=== PATIENT | female | born 1930 | race Caucasian/White ===

== ENCOUNTER 2020-05-11 21:18 | Emergency (ER) | payer OTHER ==
[~2020-05-11] VITALS: Ht 152.4 cm; Wt 59.0 kg
[2020-05-11 21:41] VITALS: Ht 152.4 cm; Wt 59.0 kg
[2020-05-12 01:31] VITALS: BP 157/68
== END 2020-05-12 01:31 | disposition home or self-care (01) ==
LOC: ED 21:18
DX: F03.90 Unspecified dementia, unspecified severity, without behavioral disturbance, psychotic disturbance, mood disturbance, and anxiety (principal)
CPT/HCPCS: J1630; J2060